=== PATIENT | male | born 1970 | race Caucasian/White ===

== ENCOUNTER 2022-08-13 19:18 | Emergency (ER) | payer SELFPAY ==
[2022-08-13] MEDS ORDERED: Lidocaine 5% 700 MG Patch TOP ONE (20:22)
[2022-08-13] MEDS ORDERED: Acetaminophen 325 MG Tab PO ONE (20:22)
[2022-08-13] MEDS ORDERED: Ibuprofen 400 MG Tab PO ONE (20:22)
== END 2022-08-13 22:20 | disposition home or self-care (01) ==
LOC: MW.ED 19:18
DX: M25.512 Pain in left shoulder (principal)
CPT/HCPCS: 70450; 72125; 99283; A9270